=== PATIENT | male | born 1970 | race Caucasian/White ===

== ENCOUNTER 2018-06-28 23:39 | Inpatient (IN) | payer OTHER ==
[~2018-06-28] VITALS: Ht 182.9 cm; Wt 67.6 kg
[2018-06-28 23:40] VITALS: BP 84/60
[2018-06-29] VITALS (28 sets, daily range): BP systolic 91–110; BP diastolic 59–78
[2018-06-29] MEDS ORDERED: PROAIR RESPICL90 MCG INH
[2018-06-29] MEDS ORDERED: XARELTO20 MG PO (00:01)
[2018-06-29] MEDS ORDERED: POTASSIUM20 PO (00:02)
[2018-06-29] MEDS ORDERED: DEMADEX20 MG PO (00:03)
[2018-06-29] MEDS ORDERED: TOPROL XL25 MG PO (00:03)
[2018-06-29] MEDS ORDERED: LIPITOR80 MG PO (00:04)
[2018-06-29] MEDS ORDERED: ASPIR 8181 MG PO (00:05)
[2018-06-29] MEDS ORDERED: PLAVIX 75 MG TA75 M1 PO (00:05)
[2018-06-29] MEDS ORDERED: VITAMIN B-12500 MCG PO (00:06)
[2018-06-29 00:16] LABS: ABSOLUTE LYMPHOCYTES 2.5 thou/uL (0.8-5.3); HEMATOCRIT 41.5 % (42.0-52.0); HEMOGLOBIN 12.7 gm/dL (14.0-18.0); MCHC 30.6 g/dL (28.0-37.0); POLYS 61.2 %
[2018-06-29 00:18] LABS: ABSOLUTE EOSINOPHILS 0.2 thou/uL (0.0-0.7); ABSOLUTE MONOCYTES 0.4 thou/uL (0.0-1.2); ABSOLUTE NEUTROPHILS 4.9 thou/uL (1.6-8.1); BASOPHILS 0.6 %; LYMPHOCYTES 31.4 %; MCH 26.6 pg (26.0-34.0); MCV 86.7 fL (80.0-100.0); MONOCYTES 4.8 %; NUCLEATED RBCS 0 /100WBC; PLATELET COUNT* 296 thou/uL (150-400); RBC 4.79 mil/uL (4.50-6.00); RDW-CV 17.6 % (10.5-14.5)
[2018-06-29 00:26] LABS: INR 1.6; PROTIME 16.1 Seconds (9.20-11.50)
[2018-06-29 00:33] LABS: ANION GAP 12 mmol/L (7-16); BUN 34 mg/dL (7-18); CALCIUM 9.5 mg/dL (8.5-10.1); CHLORIDE 95 mmol/L (98-107); CO2 28 mmol/L (21-32); CREATININE 1.4 mg/dL (0.6-1.3); GLUCOSE 127 mg/dL (70-99); POTASSIUM 4.6 mmol/L (3.5-5.1); SODIUM 135 mmol/L (136-145); TROPONIN-I LEVEL <0.06 ng/mL (<0.06)
[2018-06-29 00:34] LABS: ALBUMIN 3.7 g/dL (3.4-5.0); ALKALINE PHOSPHATASE 288 U/L (46-116); NT-PRO BRAIN NAT PEPTIDE 12597 pg/mL (<300); SGOT 84 U/L (15-37); SGPT 96 U/L (30-65); TOTAL BILIRUBIN 0.8 mg/dL (<0.1-1.0); TOTAL PROTEIN 7.6 g/dL (6.4-8.2)
[2018-06-29 01:20] LABS: URINE BILIRUBIN NEGATIVE (Negative); URINE BLOOD NEGATIVE (Negative); URINE CLARITY CLEAR; URINE COLOR YELLOW; URINE GLUCOSE-RANDOM NEGATIVE (Negative); URINE KETONES NEGATIVE (Negative); URINE LEUKOCYTES-REFLEX NEGATIVE (Negative); URINE NITRITE-REFLEX NEGATIVE (Negative); URINE PROTEIN NEGATIVE (Negative); URINE SPECIFIC GRAVITY 1.015 (1.005-1.030); URINE UROBILINOGEN 0.2 E.U./dl (0.2-1.0)
[2018-06-29 01:27] LABS: AMP/METHAMP Negative (Negative); BARBITURATES Negative (Negative); BENZODIAZEPINES Negative (Negative); COCAINE Negative (Negative); METHADONE Negative (Negative); OPIATES Negative (Negative); PCP Negative (Negative); THC Negative (Negative)
--- NOTE | 2018-06-29 05:06 | NUR ---
RECEIVED REPORT FROM MANINDER OF ED. PT ARRIVED AT APPROX 0201. PT IS AWAKE AND ORIENTED X4. 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 DENIES ANY PAIN NOR DISCOMFORT. ASSESSMENT DONE AND CHARTED. PT ADVISED ON THE USE OF CALL LIGHT AND ORIENTED ON ROOM SET UP. FALL PRECAUTIONS IN PLACE. HOURLY ROUNDING DONE FOR PT SAFETY.
--- NOTE | 2018-06-29 11:11 | EKG ---
[place] [address] ELECTROCARDIOGRAM REPORT Name: NIKKY TURNER Room: [address] ADM IN [facility]#: [id number] Admission: 06/29/18 Attend Phys: Kiran Mak Discharge: Date of : 74 Report #: [id number] THIS REPORT FOR: //name// [facility] ED Test Date: 2018-06-28 Test Time: 23:52:22 Pat Name: NIKKY TURNER Department: Room: [facility] Gender: M Furniture Lumber Production Worker: : 1970 Requested By: Dylon Bruce Order Number: [id number] MD: Dario Dia Measurements Intervals [place] Rate: 106 P: 77 CT: 142 QRS: 27 QRSD: 77 T: 117 QT: 347 QTc: 461 Interpretive Statements Sinus tachycardia Probable left atrial enlargement LVH with secondary repolarization abnormality Anterior Q waves, possibly due to LVH No previous ECG available for comparison Electronically Signed On 06-29-2018 11:11:35 CDT by Dario Dia [email or web address] <ELECTRONICALLY SIGNED> By: Dario Dia MD, [facility] 06/29/18 1111 [id number] 235 Dario Dia MD, FAC /EPI
--- NOTE | 2018-06-29 13:39 | NUR ---
PT TO TRANSFER TO ICU FOR DOBUTAMINE DRIP TO BE STARTED. PT NON COMPLIANT WITH KEEPING ON TELEMETRY AND O2 ON AT THIS TIME. WILL TAKE PT TO ICU
[2018-06-29 14:05] LABS: CALCIUM 9.6 mg/dL (8.5-10.1); CREATININE 1.5 mg/dL (0.6-1.3); MAGNESIUM 2.3 mg/dL (1.8-2.4); POTASSIUM 4.6 mmol/L (3.5-5.1)
--- NOTE | 2018-06-29 18:37 | NUR ---
PATIENT ON DOBUTAMINE GTT AT THIS TIME, DR HERRERA CALLED TO CHECK ON PATIENT AND WANTS THE DOBUTAMINE TO STAY AT 2.5MCG FOR NOW. PATIENT SITTING UP EATING DINNER, EDUCATED HIM ON DIET FOR HIS HEART AND ALSO EDUCATED HIM ON HIS SUGARS BEING HIGH. PATIENT INTERUPTS THIS RN EDUCATES AND DOES NOT SEEM TO PROCESS ALL EDUCATION AT THIS. WILL CONTINUE TO EDUCATE AND TREAT PATIENT. BED IN LOWEST POSITON, CALL LIGHT IN REACH, OUTSIDE INSTALLATION MACHINIST IN PLACE.
[2018-06-30] VITALS (54 sets, daily range): BP systolic 83–110; BP diastolic 50–81
[2018-06-30 04:10] LABS: HEMATOCRIT 33.2 % (42.0-52.0); HEMOGLOBIN 10.9 gm/dL (14.0-18.0); MCH 26.7 pg (26.0-34.0); MCHC 32.7 g/dL (28.0-37.0); MPV 8.9 fl. (7.2-11.1); RBC 4.07 mil/uL (4.50-6.00); RDW-CV 17.2 % (10.5-14.5)
[2018-06-30 04:39] LABS: MCV 81.6 fL (80.0-100.0)
--- NOTE | 2018-06-30 07:22 | NUR ---
VITALS STABLE, AFEBRILE. DOBUTAMIN GTT STILL GOING, MAP>65, TACHYCARDIC WITH HR 90s-100s. USES ACCESSORY MUSCLES TO BREATH WHEN SLEEPING, DOES NOT KEEP NC IN NOSE, SPO2 >90%. BM THIS SHIFT, SMALL AND FORMED. ABLE TO PRODUCE 1000CC URINE, LIGHT YELLOW. CALL LIGHT WITHIN REACH. POSITIONS SELF IN BED.
[2018-06-30 13:44] LABS: ALBUMIN 3.4 g/dL (3.4-5.0); CALCIUM 9.3 mg/dL (8.5-10.1); CREATININE 1.5 mg/dL (0.6-1.3); POTASSIUM 4.4 mmol/L (3.5-5.1); TOTAL BILIRUBIN 0.5 mg/dL (<0.1-1.0); TOTAL PROTEIN 6.5 g/dL (6.4-8.2)
--- NOTE | 2018-06-30 15:13 | NUR ---
PATIENT NOT VERY RECEPTIVE TO EDUCATION. ATTEMPTED TO EDUCATE MANY TIMES ON DIET CHOICES GIVEN PATIENTS CURRENT STATE AND BLOOD SUGARS ARE ALL OVER THE PLACE. PATIENT STATES HE IS NOT DIABETIC AND HIS SUGARS WERE FINE AT HOME AND SOMETHING IS WRONG WITH OUR MACHINE. PATIENT ALSO HAD FAMILY BRING HIM IN A 32 OZ SMOOTHIE AND A MED SIZE COFFEE FROM [employer] TODAY. STATES HE EATS THIS AT HOME AND HIS SUGARS NEVER GET ABOVE 117. AGAIN ATTEMPTED TO EDUCATE BUT PATIENT JUST SAID WHATEVER.
--- NOTE | 2018-06-30 16:24 | CON ---
[address] [address] CONSULTATION Name: JOSHUA NUR Room: [address] IN .R.#: [id number] Admission: 06/29/18 Attend Phys: Kiran Mak Discharge: Date of : 74 Report #: [id number] THIS REPORT FOR: //name// CC: NELDA physician/PCP Holly Israel TYPE OF REPORT: Cardiology consultation. HISTORY OF PRESENT ILLNESS: I was asked by Dr. Israel to see this 47-year-old white male in Cardiology consultation for evaluation of syncope in the context of acute on chronic systolic heart failure. This man has COPD as well. He has coronary artery disease. He is status post PA. He has an ischemic cardiomyopathy and he said to have an ejection fraction of about 5%-10% on an echo from the [facility] done earlier this month. 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 He has had multiple pulmonary emboli in the past and he states he has had besides myocardial infarctions, he has had CVAs. He was recently at the [facility] and was decided he was not a candidate for a transplant because of prior history of drug abuse and I believe, alcohol abuse. He also has a history of poor compliance with meds. He was turned down for transplant there and referred to the palliative care service. He came down here to stay with either an ex- or a girlfriend and has apparently seen a doctor in [place], [place] who referred him to the [facility]. I do not believe they have a transplant program. He has an appointment there for later this week or for next week. He has been having a lot of dyspnea on exertion, which is a chronic issue with him and seems to have been more acute recently, he was in a hardware store and passed out while standing up. He has had quite a bit of dizziness when he stands up. When he was at the [facility], he was said to be in a cardiogenic shock. He gets very dizzy if he gets out of bed and walks to the bathroom. Orthostatics are being checked now. He has not been having any chest pain. He tells me he has quite a bit of shortness of breath. He has had that since March 2018. It is obviously worse with activity, but it is present at rest but he definitely denied any chest pain to me. He does have some orthopnea and paroxysmal nocturnal dyspnea as well but he does not have edema. He has only had the one episode of syncope. Coronary risk factors include a past history of smoking. He denies hypercholesterolemia or diabetes or high blood pressure. There is family history of coronary artery disease. He has had kidney disease. He apparently does not have any blocked arteries in his neck or legs or claudication. PAST MEDICAL HISTORY: As described above. 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 He did have pneumonia recently as well. HOME MEDICATIONS: Albuterol inhalers 2 puffs p.r.n., aspirin 81 mg daily, atorvastatin 80 mg daily, Plavix 75 mg daily, B12 1000 mcg daily, metoprolol succinate extended release 12.5 mg daily, potassium 60 mEq b.i.d., Xarelto 20 [place] [address] CONSULTATION Name: JOSHUA NUR Room: [address] IN [facility]#: [id number] Admission: 06/29/18 Attend Phys: Kiran Mak Discharge: Date of : 74 Report #: [id number] daily and torsemide 40 mg b.i.d. ALLERGIES: He has no known allergies. REVIEW OF SYSTEMS: Positive for weakness, weight loss, cough, sputum production, pneumonia, emphysema, palpitations, chest discomfort, shortness of breath with exercise, shortness of breath after lying down, waking up short of breath, passing out. Otherwise, his review of systems is negative for some 30 different complaints in 14 different system categories. Please see our review of system form for details and negatives in review of systems. Systems reviewed include central nervous system, general, respiratory, cardiovascular, endocrine, gastrointestinal, genitourinary, hematologic, lymphatic, allergic, immunologic, psychiatric, musculoskeletal, skin, eyes, ears, nose, mouth and throat. SOCIAL HISTORY: Single. Does not drink, smoke or use illegal drugs now. FAMILY HISTORY: His brother, Canelo, has a history of coronary heart disease. PHYSICAL EXAMINATION: GENERAL: He presents as a well-developed, well-nourished white male, in no acute distress. VITAL SIGNS: Pulse was 107, blood pressure was 99/65, respirations were 20 and regular and temperature was 97.4. HEENT: His head was atraumatic. Eyes clear. NECK: Supple. There is no jugular venous distention or hepatojugular reflux. Thyroid is not enlarged. There is no adenopathy. SKIN: Warm and dry. Mucous membranes moist. LUNGS: Clear to auscultation and percussion. HEART: Revealed normal first heart sound. There is soft S4. There is no S3. There are no murmurs, rubs, thrills, heaves or gallops. PMI is nondisplaced. ABDOMEN: Soft, flat and nontender. No palpable masses. No organomegaly. EXTREMITIES: Reveal no cyanosis, clubbing or edema. NEUROLOGICAL: The patient mentated normally, talked normally and moved all extremities normally. LABORATORY DATA: Note, his BNP was greater than 12,000. Troponins were negative. RADIOLOGICAL DATA: His chest x-ray, however, showed no acute cardiopulmonary disease. Note that his EKG showed normal sinus rhythm with an old anteroseptal infarct and left ventricular hypertrophy. There were nonspecific ST-T abnormalities. IMPRESSION: 1. Syncope. This is likely due to orthostatic hypotension secondary to his medications [place] [address] CONSULTATION Name: JOSHUA NUR Room: [address] IN [facility]#: [id number] Admission: 06/29/18 Attend Phys: Kiran Mak Discharge: Date of : 74 Report #: [id number] 2. Congestive heart failure, acute on chronic systolic. 3. Chronic obstructive pulmonary disease, currently without a clearcut exacerbation. 4. Coronary artery disease. 5. Status post myocardial infarction at least x 1 and possibly more. 6. Ischemic cardiomyopathy. 7. Right ventricular mural thrombus. 8. Status post pulmonary emboli. 9. Status post cerebrovascular accidents. RECOMMENDATIONS: We will continue his current medical regimen. I checked an echo. He should be referred to either [facility] or for evaluation for transplant, although I suspect given his previous social history, he is not a particularly good candidate for a transplant. He also has been somewhat noncompliant here in the hospital. Thank you very much for asking me to see Joshua Nur. If there are any questions, please feel free to contact me. <ELECTRONICALLY SIGNED> By: Fauzia Hurtado MD, FACC 06/30/18 1624 [id number]. Rudy Hurtado MD, FACC /nt
[2018-06-30 17:28] LABS: BE 0.3 mmol/L (-2 to +3); PO2 VENOUS 103.1 mmHg (35.0-45.0)
[2018-06-30 17:45] LABS: URINE BILIRUBIN NEGATIVE (Negative); URINE BLOOD NEGATIVE (Negative); URINE CLARITY CLEAR; URINE COLOR YELLOW; URINE GLUCOSE-RANDOM 1+ (Negative); URINE KETONES NEGATIVE (Negative); URINE LEUKOCYTES NEGATIVE (Negative); URINE NITRITE NEGATIVE (Negative); URINE PROTEIN NEGATIVE (Negative); URINE SPECIFIC GRAVITY 1.015 (1.005-1.030); URINE UROBILINOGEN 0.2 E.U./dl (0.2-1.0)
[2018-06-30 17:53] LABS: AMP/METHAMP Negative (Negative); BARBITURATES Negative (Negative); BENZODIAZEPINES Negative (Negative); COCAINE Negative (Negative); METHADONE Negative (Negative); OPIATES Negative (Negative); PCP Negative (Negative); THC Negative (Negative)
--- NOTE | 2018-06-30 18:48 | NUR ---
PATIENT VERY AGGRESSIVE TOWARDS THE END OF SHIFT TODAY. AGGRAVATED THAT DINNER WAS LATE. EXPLAINED TO THE PATIENT DIETARY WAS LATE TODAY AND I APOLIGIZED. HE TOLD ME HE JUST WANTED TO EAT AND NOT TALK TO ME. LEFT PATIENTS ROOM. REMAINS ON DOBUTAMINE GTT THIS SHIFT, PRESSURES SOFT BUT MAP REMAINS ABOVE 65. CARDIAC MONIOTOR IN PLACE. BED IN LOWEST POSITION, CALL LIGHT IN REACH
--- NOTE | 2018-06-30 21:09 | NUR ---
IN ROOM TO GIVE NIGHT MEDS, PATIENT ASKS WHAT HIS BLOOD SUGAR IS. I TOLD HIM 226, YELLING AND BEING DISRESPECTFUL TO MYSELF AND STAFF REPORTING HIS BS WAS TAKEN MORE THAN 30 MINS AGO AND WE DON'T KNOW WHAT WE ARE DOING SINCE WE DON'T KNOW HIS BS RIGHT THIS MINUTE. REPORTS HIS BS MIGHT HAVE GONE UP OR DOWN, AND HE WANTS ANOTHER REDRAW. ATTEMPTED EDUCATION, PATIENT NOT RECEPTIVE TO LISTEN OR UNDERSTAND AT THIS TIME. HE KEEPS ON TELLING ME HE HAS BEEN READING ABOUT HIS HEART FAILURE ONLINE AND THAT HIS BS IS UP BECAUSE OF HIS HEART FAILURE, AND HAS NOTHING TO DO WITH HIS DIET. REFUSES HIS STEROID WELL. CALLED [facility], WILL BE HERE SOON TO SPEAK WITH PATIENT.
[2018-07-01] VITALS (19 sets, daily range): BP systolic 65–109; BP diastolic 34–80
--- NOTE | 2018-07-01 06:23 | NUR ---
VITALS STABLE THROUGH THE NIGHT, DOBUTAMIN GTT RUNNING AT SAME RATE. PATIENT NOT PLEASANT, IS NOT HAPPY WITH THE TREATMENT HE IS RECEIVING. NOTICED NOSE BLEED WHEN WALKING IN PATIENT ROOM AT 2330, ASKED PATIENT WHEN THIS STARTED. NOT WILLING TO ANSWER. WHEN TOLD I AM TRYING TO HELP HIM, STATES "IT'S NOT LIKE YOU GUYS ARE LISTENING TO ME." THEN TELLS ME IT STARTED A COUPLE OF HOURS AGO, WHICH IS UNTRUE BECAUSE I WAS IN HIS ROOM LESS THAN AN HOUR PRIOR TO THAT. BLEEDING CONTROLLED WITH PRESSURE, DID NOT NEED TO NOTIFY PROVIDER FOR INTERVENTION, WILL LET DAYSHIFT RN KNOW OF THIS FOR CONTINUED CARE. PATIENT IN CHAIR AT THIS TIME, SEEMS MORE PLEASANT THIS AM. ABLE TO USE COMMODE. CALL LIGHT WITHIN REACH.
[2018-07-01 09:12] LABS: CALCIUM 9.2 mg/dL (8.5-10.1); CREATININE 1.4 mg/dL (0.6-1.3); MAGNESIUM 2.5 mg/dL (1.8-2.4); POTASSIUM 3.7 mmol/L (3.5-5.1)
[2018-07-01 09:17] LABS: HEMATOCRIT 34.2 % (42.0-52.0); MCH 26.2 pg (26.0-34.0); MCHC 32.1 g/dL (28.0-37.0); MCV 81.7 fL (80.0-100.0); MPV 8.8 fl. (7.2-11.1); NUCLEATED RBCS 0 /100WBC; PLATELET COUNT* 235 thou/uL (150-400); RBC 4.19 mil/uL (4.50-6.00); RDW-CV 17.1 % (10.5-14.5); WBC 13.7 thou/uL (4.0-11.0)
[2018-07-01 09:34] LABS: ABSOLUTE LYMPHOCYTES 0.5 thou/uL (0.8-5.3); ABSOLUTE MONOCYTES 0.3 thou/uL (0.0-1.2); ABSOLUTE NEUTROPHILS 12.9 thou/uL (1.6-8.1); PLATELET ESTIMATE ADEQUATE
--- NOTE | 2018-07-01 11:02 | NUR ---
PATIENT ALERT BUT UNHAPPY. TAKING PO WELL. DENIES PAIN OR SOA.
--- NOTE | 2018-07-01 11:19 | NUR ---
ICU ROUNDING: RN IN-CHARGE OF PATIENT INFORMS THAT THE PATIENT ALERT AND ORIENTED. ONLY CONCERN IS THAT THE PATIETN IS NOT HAPPY WITH HIS CARE. D/C AIRCRAFT MAINTENANCE MANAGER ATTEMPTED TO DISCUSS THIS WITH THE PATIENT. PATIENT UNWILLING TO DISCUSS AND STATES 'I DON'T NEED TO TALK TO YOU'. PATIENT EXPERIENCE COORDINATOR AWARE. CM WILL REMAIN AVIALABLE TO ASSIST AND FOLLOW NEEDED.
--- NOTE | 2018-07-01 14:26 | NUR ---
PATIENT TRANSFERED TO 228 CONCERNED ABOUT PROGNOSES. GAVE REPORT TO DEBBIE MARIA. PT DENIES PAIN OR SOA.
--- NOTE | 2018-07-01 14:59 | NUR ---
PT TO UNIT AT APPROX 1400. PT A/O AND TELE TRACKING NSR/TACH.AGREE WITH PREVIOUS ASSESSMENT. ORIENTED TO NEW ROOM, CALL LIGHT IN REACH. WILL CONT TO MONITOR
--- NOTE | 2018-07-01 15:22 | 2DMMODE ---
[place] [address] 2 D/M-MODE ECHOCARDIOGRAM Name: NIKKY TURNER Room: [address] IN [facility]#: [id number] Admission: 06/29/18 Attend Phys: Holly Israel Discharge: Date of : 74 Date of Service: 07/01/18 1521 Report #: [id number] THIS REPORT FOR: //name// APPROVED REPORT Study performed: 07/01/2018 10:41:04 EXAM: Comprehensive 2D, Doppler, and color-flow Echocardiogram Patient Location: In-Patient Room #: 005 Status: routine BSA: 1.84 HR: 103 bpm BP: 106/80 mmHg Rhythm: NSR Other Information Study Quality: Good Indications Congestive Heart Failure Dyspnea Syncope Cardiomyopathy 2D Dimensions IVSd: 11.28 (7-11mm) LVOT Diam: 23.47 (18-24mm) LVDd: 67.02 mm PWd: 12.09 (7-11mm) Ascending Ao: 32.90 (22-36mm) LVDs: 63.09 (25-40mm) Aortic Root: 33.26 mm Volumes Left Atrial Volume (Systole) LA ESV Index: 44.80 mL/m2 Aortic Valve AoV Peak Aris.: 0.73 m/s AO Peak Gr.: 2.11 mmHg LVOT Max P.79 mmHg AO Mean Gr.: 1.08 mmHg LVOT Mean P.37 mmHg LVOT Max V: 0.44 m/s AO V2 VTI: 9.32 cm LVOT Mean V: 0.28 m/s CODRELIA (VTI): 3.18 cm2 LVOT V1 VTI: 6.86 [place] [address] 2 D/M-MODE ECHOCARDIOGRAM Name: NIKKY TURNER Room: [address] IN ..#: [id number] Admission: 06/29/18 Attend Phys: Holly Israel Discharge: Date of : 74 Date of Service: 07/01/18 1521 Report #: [id number] E/A Ratio: 3.02 MV Decel. Time: 103.60 ms MV E Max Aris.: 0.93 m/s MV PHT: 30.04 ms MVA (PHT): 7.32 cm2 TDI E/Lateral E': 10.33 E/Medial E': 13.29 Medial E' Aris.: 0.07 m/s Lateral E' Aris.: 0.09 m/s Pulmonary Valve PV Peak Aris.: 0.64 m/s PV Peak Gr.: 1.64 mmHg Tricuspid Valve RAP Estimate: 5.00 mmHg TR Peak Gr.: 32.36 mmHg RVSP: 37.00 mmHg PA Pressure: 37.00 mmHg Left Ventricle Left ventricle is moderate to severely dilated. There is severe global hypokinesis of the left ventricle. Mild concentric left ventricular hypertrophy. Left ventricular systolic function is severely decreased. LVEF is less than 20% Grade IV - fixed restrictive diastolic dysfunction. Right Ventricle Right ventricle is dilated. The right ventricular systolic function is hypokinetic Atria Left atrium is moderately dilated. Right atrium is dilated. Aortic Valve The aortic valve is normal in structure. No aortic regurgitation is present. There is no aortic valvular stenosis. Mitral Valve The mitral valve is normal in structure. Moderate mitral regurgitation. No evidence of mitral valve stenosis. Tricuspid Valve The tricuspid valve is normal in structure. Mild tricuspid regurgitation. Estimated pa pressure 35 [place] [address] 2 D/M-MODE ECHOCARDIOGRAM Name: NIKKY TURNER Room: [address]#: [id number] Admission: 06/29/18 Attend Phys: Holly Israel Discharge: Date of : 74 Date of Service: 07/01/18 1521 Report #: [id number] The pulmonary valve is normal in structure. Trace pulmonic regurgitation. Great Vessels The aortic root is normal in size. IVC is dilated. Pericardium There is no pericardial effusion. <Conclusion> LVEF is less than 20% The right ventricular systolic function is hypokinetic Left atrium is moderately dilated. Moderate mitral regurgitation. Mild concentric left ventricular hypertrophy. <ELECTRONICALLY SIGNED> By: Dario Dia MD, FACC 07/01/18 1521 1521 1521 Dario Dia MD, FACC /INF
[2018-07-02] VITALS: BP 86/56
[2018-07-02 03:06] LABS: GLYCOHEMOGLOBIN (HGB A1C) 6.6 % (4.8-5.6)
[2018-07-02 04:00] VITALS: BP 85/63
--- NOTE | 2018-07-02 04:55 | NUR ---
PT CARE ASSUMED AT 1930. SAT MAINTAINED IN 2L. ALERT AND ORIENTED X4. CALL LIGHT WITHIN REACH AND BED IN LOW POSITION. PT KEEPS HIS O2 IN MOUTH, SAYS O2 DOESN'T WORK IF HE KEEPS IT IN HIS NOSE ITS CLOGGED UP AND IS A MOUTHBREATHER. DENIES PAIN. HOURLY ROUNDING DONE FOR PT SAFETY.
[2018-07-02 05:26] LABS: HEMOGLOBIN 11.7 gm/dL (14.0-18.0); MCHC 31.7 g/dL (28.0-37.0); MCV 82.3 fL (80.0-100.0); MPV 9.1 fl. (7.2-11.1); RBC 4.5 mil/uL (4.50-6.00); RDW-CV 17.5 % (10.5-14.5)
[2018-07-02 05:33] LABS: ALBUMIN 3.2 g/dL (3.4-5.0); CALCIUM 8.4 mg/dL (8.5-10.1); CREATININE 1.3 mg/dL (0.6-1.3); MAGNESIUM 2.3 mg/dL (1.8-2.4); TOTAL BILIRUBIN 1.4 mg/dL (<0.1-1.0); TOTAL PROTEIN 6.5 g/dL (6.4-8.2)
--- NOTE | 2018-07-02 09:40 | NUR ---
PER [facility], PT HAS MEDICAID [place] PENDING OF 06/26
[2018-07-02 12:15] VITALS: BP 89/64
[2018-07-02 14:19] VITALS: BP 89/64
== END 2018-07-02 16:39 | disposition home or self-care (01) | DRG 291 ==
LOC: M.ERS 23:39 → M.ICU 06-29 01:04 → M.TBA-ER 06-29 01:04 → M.2W 06-29 02:00 → M.ICU 06-29 13:56 → M.2W 07-01 14:27
PROVIDERS: Family Medicine; Internal Medicine; ADMIT Internal Medicine
DX: I50.23 Acute on chronic systolic (congestive) heart failure (principal); J96.01 Acute respiratory failure with hypoxia; J44.1 Chronic obstructive pulmonary disease with (acute) exacerbation; E87.2 Acidosis; I25.10 Atherosclerotic heart disease of native coronary artery without angina pectoris; I51.3 Intracardiac thrombosis, not elsewhere classified; I25.5 Ischemic cardiomyopathy; K73.9 Chronic hepatitis, unspecified; Z79.82 Long term (current) use of aspirin; I25.2 Old myocardial infarction; Z86.73 Personal history of transient ischemic attack (TIA), and cerebral infarction without residual deficits; Z82.49 Family history of ischemic heart disease and other diseases of the circulatory system; Z86.711 Personal history of pulmonary embolism; Z87.891 Personal history of nicotine dependence; Z79.899 Other long term (current) drug therapy